=== PATIENT | female | born 2000 | race African-American/Black ===

== ENCOUNTER 2021-08-31 19:58 | Inpatient (IN) | payer BC, OTHER ==
[~2021-08-31 19:58] MED LIST: Bupivacaine 0.25% HCL 30 ML VIAL ONE
[2021-08-31 20:24] VITALS: BMI 33.3
[2021-08-31] MEDS ORDERED: hydrALAZINE 20 MG/ML VIAL SLOW IVP PRN (20:42)
[2021-08-31] MEDS ORDERED: Ondansetron PF 4 MG/2 ML Vial IVP PRN ×2 (20:42→23:22)
[2021-08-31] MEDS ORDERED: HYDROcodone/Acetaminophen 5/325 mg Tablet PO PRN (20:42)
[2021-08-31] MEDS ORDERED: Ibuprofen 800 MG TAB PO PRN (20:42)
[2021-08-31] MEDS ORDERED: Butorphanol Tartrate 1 MG/ML VIAL SLOW IVP PRN (20:42)
[2021-08-31] MEDS ORDERED: Lidocaine 1% (PF) 30 ML VIAL SC PRN (20:42)
[2021-08-31] MEDS ORDERED: Promethazine HCl 25 MG/ML VIAL IM PRN ×2 (20:42→23:22)
[2021-08-31] MEDS ORDERED: Lactated Ringer's 1,000 ML IV SCH (20:45)
[2021-08-31] MEDS ORDERED: Penicillin G Potassium 5 MILL.UNITS in Sodium Chloride 0.9% 100 ML IVPB SCH (20:45)
[2021-08-31 22:03] LABS: Hemoglobin 12.9 g/dL (12.0-15.5); Mean Corpuscular HGB CONC 33.4 g/dL (32.0-36.0); Mean Corpuscular Hemoglobin 31.4 pg (27.0-33.0); Mean Corpuscular Volume 93.9 fl (81.6-98.3); Mean Platelet Volume 10.2 fl (7.4-10.4); Platelet Count 415 10x3/uL (150-450); RBC Distribution Width 13.4 % (11.5-14.5); Red Blood Cell (RBC) Count 4.11 10x6/uL (3.90-5.03)
[2021-08-31] MEDS ORDERED: Fentanyl 2 mcg/Bup 0.1% Cadd 100 ML ONE (22:18)
[2021-08-31 22:48] LABS: Hep B Surf Ag Non-Reactive S/CO (NonReactive)
[2021-08-31 22:49] LABS: SARS-CoV-2 NAA Rapid Test Not Detected (NotDetected)
[2021-08-31 22:51] LABS: HBSAg Index 0.21 S/CO (0-0.99)
[2021-08-31 23:09] LABS: Syphilis Antibody Nonreactive (Nonreactive); Syphilis Antibody Index 0.06 S/CO (<1.00 Non-Reactive)
[2021-08-31] MEDS ORDERED: diphenhydrAMINE 50 MG/ML VIAL IVP PRN (23:22)
[2021-08-31] MEDS ORDERED: Lactated Ringer's 500 ML IV PRN (23:22)
[2021-08-31] MEDS ORDERED: ePHEDrine Sulfate 50 MG/10 ML VIAL SLOW IVP PRN (23:22)
[2021-08-31] MEDS ORDERED: Hydrocerin (Eucerin) Cream 120 gm Jar TOP PRN (23:22)
[2021-08-31] MEDS ORDERED: Naloxone HCl 0.4 mg/ml Vial IVP PRN ×2 (23:22)
[2021-08-31] MEDS ORDERED: Acetaminophen 325 MG TAB PO PRN (23:22)
[2021-08-31] MEDS ORDERED: Communication Order-Pharmacy FS SCH (23:30)
[2021-08-31] MEDS ORDERED: Fentanyl 2 mcg/Bupivacaine 0.1% Cassette 100 ML EPIDURAL SCH (23:30)
[2021-09-01] MEDS: Penicillin G 2.5 MILL.units 2.5 MILL.UNITS in Premix Bag 1 BAG IVPB SCH ×4 (02:42→22:06)
[2021-09-01] MEDS: Lactated Ringer's 1,000 ML IV SCH ×3 (07:43→22:06)
[2021-09-01] MEDS: NS w/ Oxytocin 30 units 500 ML IV SCH ×2 (09:02→12:34)
[2021-09-01] MEDS ORDERED: Milk Of Magnesia 30 ML UDCUP PO PRN (11:25)
[2021-09-01] MEDS ORDERED: Benzocaine-Menthol 82.5 ML CAN TOP PRN (11:25)
[2021-09-01] MEDS ORDERED: Boostrix 0.5 ML (Tdap) VIAL IM ONE (11:25)
[2021-09-01] MEDS ORDERED: HYDROcodone/Acetaminophen 5/325 mg Tablet PO PRN ×2 (11:25)
[2021-09-01] MEDS ORDERED: hydrALAZINE 20 MG/ML VIAL SLOW IVP PRN (11:25)
[2021-09-01] MEDS ORDERED: diphenhydrAMINE 25 MG CAP PO PRN (11:25)
[2021-09-01] MEDS ORDERED: Lanolin Ointment 7 GM TUBE TOP PRN (11:25)
[2021-09-01] MEDS ORDERED: Misoprostol 200 MCG TAB VAG PRN (11:25)
[2021-09-01] MEDS ORDERED: Ondansetron PF 4 MG/2 ML Vial IVP PRN (11:25)
[2021-09-01] MEDS ORDERED: Bisacodyl 10 MG SUPP PR PRN (11:25)
[2021-09-01] MEDS ORDERED: Preparation H Ointment 28 GM TUBE PR PRN (11:25)
[2021-09-01] MEDS ORDERED: Zolpidem Tartrate 5 MG TAB PO PRN (11:25)
[2021-09-01] MEDS ORDERED: NS w/ Oxytocin 30 units 500 ML IV SCH (11:30)
[2021-09-01] MEDS: Ibuprofen 800 MG TAB PO SCH ×2 (14:18→21:30)
[2021-09-01] MEDS: Ferrous Sulfate 325 MG TAB PO SCH (15:17)
[2021-09-01] MEDS: Docusate Calcium (SURFAK) 240 MG CAP PO SCH (21:29)
[2021-09-02] MEDS: Ibuprofen 800 MG TAB PO SCH ×2 (05:20→14:33)
[2021-09-02] MEDS: Ferrous Sulfate 325 MG TAB PO SCH ×2 (07:25→14:46)
[2021-09-02] MEDS: Docusate Calcium (SURFAK) 240 MG CAP PO SCH (08:12)
[2021-09-02] MEDS ORDERED: Prenatal Vitamin 1 TAB PO SCH (09:00)
[2021-09-02 12:01] VITALS: BP 100/57; TEMP 97.5
== END 2021-09-02 16:40 | disposition home or self-care (01) | DRG 807 ==
LOC: CSHLD/OP 19:58 → CSHLD 19:59 → CSHPP 09-01 13:50
PROVIDERS: ADMIT Obstetrics & Gynecology; ATTEND Obstetrics & Gynecology
PROC: 10E0XZZ Delivery of Products of Conception, External Approach (ICD-10-PCS; principal; 2021-09-02)
PROC: 0HQ9XZZ Repair Perineum Skin, External Approach (ICD-10-PCS; 2021-09-02)
PROC: 10907ZC Drainage of Amniotic Fluid, Therapeutic from Products of Conception, Via Natural or Artificial Opening (ICD-10-PCS; 2021-09-02)
DX: O99.824 Streptococcus B carrier state complicating childbirth (principal); Z37.0 Single live birth; O99.02 Anemia complicating childbirth; Z20.822 Contact with and (suspected) exposure to COVID-19; D64.9 Anemia, unspecified; Z3A.39 39 weeks gestation of pregnancy; O70.0 First degree perineal laceration during delivery
CPT/HCPCS: 85027; 86780; 86850; 86900; 86901; 87340; J0595; J2405; J2540; J2550; J2590; J3490; J7120; S0020; U0002

== ENCOUNTER 2023-01-20 09:03 | Inpatient (IN) | payer BC, OTHER ==
[2023-01-20] MEDS ORDERED: Promethazine HCl 25 MG/ML VIAL IM PRN ×2 (09:09→12:29)
[2023-01-20] MEDS ORDERED: Carboprost 250 MCG/ML AMP IM PRN (09:09)
[2023-01-20] MEDS ORDERED: Misoprostol 200 MCG TAB PR PRN (09:09)
[2023-01-20] MEDS ORDERED: Ondansetron PF 4 MG/2 ML Vial IVP PRN ×3 (09:09→17:51)
[2023-01-20] MEDS ORDERED: Diphenoxylate HCl/Atropine Tablet PO PRN ×2 (09:09)
[2023-01-20] MEDS ORDERED: Docusate 100 MG CAP PO PRN (09:09)
[2023-01-20] MEDS ORDERED: Acetaminophen 500 MG TAB PO PRN (09:09)
[2023-01-20] MEDS ORDERED: hydrALAZINE 20 MG/ML VIAL SLOW IVP PRN ×2 (09:09→17:51)
[2023-01-20] MEDS ORDERED: Ibuprofen 800 MG TAB PO PRN (09:09)
[2023-01-20] MEDS ORDERED: Lidocaine 1% (PF) 30 ML VIAL SC PRN (09:09)
[2023-01-20] MEDS ORDERED: Butorphanol Tartrate 1 MG/ML VIAL SLOW IVP PRN (09:09)
[2023-01-20] MEDS ORDERED: HYDROcodone/Acetaminophen 5/325 mg Tablet PO PRN ×4 (09:09→17:51)
[2023-01-20] MEDS ORDERED: NS w/ Oxytocin 30 units 500 ML IV SCH ×3 (09:15→18:00)
[2023-01-20] MEDS ORDERED: Penicillin G Potassium 5 MILL.UNITS in Sodium Chloride 0.9% 100 ML IVPB ONE (09:15)
[2023-01-20 09:33] VITALS: BMI 32.2
[2023-01-20 09:45] LABS: Hemoglobin 12.6 g/dL (12.0-15.5); Mean Corpuscular HGB CONC 32.6 g/dL (32.0-36.0); Mean Corpuscular Hemoglobin 30.3 pg (27.0-33.0); Platelet Count 412 10x3/uL (150-450); RBC Distribution Width 13.3 % (11.5-14.5); Red Blood Cell (RBC) Count 4.16 10x6/uL (3.90-5.03); White Blood Cell (WBC) Count 5.1 10x3/uL (3.5-10.5)
[2023-01-20] MEDS: Lactated Ringer's 1,000 ML IV SCH ×2 (09:45→20:23)
[2023-01-20 10:29] LABS: HBSAg Index 0.17 S/CO (0-0.99); HIV (1/2) Antibody/Antigen Non-Reactive (NonReactive); HIV 1/2 INDEX 0.08 S/CO (<1.00); Hep B Surf Ag - L&D Non-Reactive S/CO (NonReactive)
[2023-01-20 10:30] LABS: Syphilis Antibody Nonreactive (Nonreactive); Syphilis Antibody Index 0.07 S/CO (<1.00 Non-Reactive)
[2023-01-20] MEDS ORDERED: Fentanyl 2 mcg/Bup 0.1% Cadd 100 ML ONE (12:05)
[2023-01-20] MEDS ORDERED: Acetaminophen 325 MG TAB PO PRN (12:29)
[2023-01-20] MEDS ORDERED: ePHEDrine Sulfate 50 MG/10 ML VIAL SLOW IVP PRN (12:29)
[2023-01-20] MEDS ORDERED: Moisturizing Cream (Eucerin) 113 GM JAR TOP PRN (12:29)
[2023-01-20] MEDS ORDERED: Lactated Ringer's 500 ML IV PRN (12:29)
[2023-01-20] MEDS ORDERED: Naloxone HCl 0.4 mg/ml Vial IVP PRN ×2 (12:29)
[2023-01-20] MEDS ORDERED: diphenhydrAMINE 50 MG/ML VIAL IVP PRN (12:29)
[2023-01-20] MEDS ORDERED: Fentanyl 2 mcg/Bupivacaine 0.1% Cassette 100 ML EPIDURAL SCH (12:30)
[2023-01-20] MEDS ORDERED: Communication Order-Pharmacy FS SCH (12:30)
[2023-01-20] MEDS: Penicillin G 2.5 MILL.units 2.5 MILL.UNITS in Premix Bag 1 BAG IVPB SCH ×2 (13:27→20:23)
[2023-01-20] MEDS ORDERED: Lanolin Ointment 7 GM TUBE TOP PRN (17:51)
[2023-01-20] MEDS ORDERED: Bisacodyl 10 MG SUPP PR PRN (17:51)
[2023-01-20] MEDS ORDERED: Milk Of Magnesia 30 ML UDCUP PO PRN (17:51)
[2023-01-20] MEDS ORDERED: Preparation H Ointment 28 GM TUBE PR PRN (17:51)
[2023-01-20] MEDS ORDERED: Boostrix 0.5 ML (Tdap) VIAL (>/=7 yrs of age) IM ONE (17:51)
[2023-01-20] MEDS ORDERED: Zolpidem Tartrate 5 MG TAB PO PRN (17:51)
[2023-01-20] MEDS ORDERED: Benzocaine-Menthol 82.5 ML CAN TOP PRN (17:51)
[2023-01-20] MEDS ORDERED: Misoprostol 200 MCG TAB VAG PRN (17:51)
[2023-01-20] MEDS ORDERED: diphenhydrAMINE 25 MG CAP PO PRN (17:51)
[2023-01-20] MEDS: Docusate 100 MG CAP PO SCH (22:11)
[2023-01-21] MEDS: Ibuprofen 800 MG TAB PO SCH ×3 (01:34→13:29)
[2023-01-21 05:22] LABS: Hemoglobin 9.7 g/dL (12.0-15.5); Mean Corpuscular HGB CONC 33.3 g/dL (32.0-36.0); Mean Corpuscular Hemoglobin 30.8 pg (27.0-33.0); Mean Corpuscular Volume 92.4 fl (81.6-98.3); Mean Platelet Volume 10.2 fl (7.4-10.4); Platelet Count 323 10x3/uL (150-450); RBC Distribution Width 13.2 % (11.5-14.5); Red Blood Cell (RBC) Count 3.15 10x6/uL (3.90-5.03); White Blood Cell (WBC) Count 9.2 10x3/uL (3.5-10.5)
[2023-01-21] MEDS: Prenatal Vitamin 1 TAB PO SCH (09:00)
[2023-01-21] MEDS: Docusate 100 MG CAP PO SCH ×2 (09:00→21:05)
[2023-01-21] MEDS: Ferrous Sulfate 325 MG TAB PO SCH ×2 (09:00→17:59)
[2023-01-22] MEDS: Ibuprofen 800 MG TAB PO SCH ×4 (03:52→21:38)
[2023-01-22] MEDS: Prenatal Vitamin 1 TAB PO SCH (09:21)
[2023-01-22] MEDS: Ferrous Sulfate 325 MG TAB PO SCH ×2 (09:21→16:45)
[2023-01-22] MEDS: Docusate 100 MG CAP PO SCH ×2 (09:21→23:07)
[2023-01-23] MEDS: Ibuprofen 800 MG TAB PO SCH ×2 (06:55→14:21)
[2023-01-23 07:49] VITALS: BP 103/62; TEMP 97.5
[2023-01-23] MEDS: Ferrous Sulfate 325 MG TAB PO SCH (08:30)
[2023-01-23] MEDS: Prenatal Vitamin 1 TAB PO SCH (08:30)
[2023-01-23] MEDS: Docusate 100 MG CAP PO SCH ×2 (08:30→14:21)
== END 2023-01-23 14:50 | disposition home or self-care (01) | DRG 807 ==
LOC: CSHLD 09:03 → CSHPP 19:55
PROVIDERS: ADMIT Obstetrics & Gynecology; ATTEND Obstetrics & Gynecology
PROC: 10E0XZZ Delivery of Products of Conception, External Approach (ICD-10-PCS; principal; 2023-01-20)
PROC: 10907ZC Drainage of Amniotic Fluid, Therapeutic from Products of Conception, Via Natural or Artificial Opening (ICD-10-PCS; 2023-01-20)
PROC: 0HQ9XZZ Repair Perineum Skin, External Approach (ICD-10-PCS; 2023-01-20)
DX: O99.824 Streptococcus B carrier state complicating childbirth (principal); Z37.0 Single live birth; Z3A.37 37 weeks gestation of pregnancy; J45.909 Unspecified asthma, uncomplicated; O99.52 Diseases of the respiratory system complicating childbirth; O70.0 First degree perineal laceration during delivery; D50.9 Iron deficiency anemia, unspecified; O90.81 Anemia of the puerperium
CPT/HCPCS: 36415; 51702; 85027; 86780; 86850; 86900; 86901; 87340; 87389; 99283; J2405; J2540; J2590; J3490; J7120; S0020